=== PATIENT | female | born 2000 | race American Indian/Alaskan Native ===

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

== ENCOUNTER 2019-07-08 18:28 | Emergency (ER) | payer SELFPAY ==
[2019-07-08] MEDS ORDERED: ONDANSETRON 4 MG ODT TAB PO ONE (19:43)
--- NOTE | 2019-07-08 19:43 | Event Note ---
ED Screening Note ED Screening Note: upper abd pain n/v a couple days ago no diarrhea no fever +dysuria a week PMHx gastritis allergy: tramadol has a nexplanon This initial assessment/diagnostic orders/clinical plan/treatment(s) is/are subject to change based on patients health status, clinical progression and re- assessment by fellow clinical providers in the ED. Further treatment and workup at subsequent clinical providers discretion. Patient/guardian urged not to elope from the ED as their condition may be serious if not clinically assessed and managed. Initial orders include: labs, UA, urine preg
[2019-07-08] MEDS ORDERED: ONDANSETRON 4 MG ODT TAB ONE (19:45)
[2019-07-08 19:46] VITALS: BP 131/94
[2019-07-08 21:45] LABS: HCG Qualitative,Urine Negative (Negative)
[2019-07-08 21:49] LABS: Bilirubin,Urine NEG (Negative); Blood,Urine NEG (Negative); Color,Urine Amber (Yellow); Mucus,Urine 3+ /HPF
== END 2019-07-08 21:48 | disposition left against medical advice (07) ==
LOC: ED 18:28
DX: R10.9 Unspecified abdominal pain (principal); Z53.21 Procedure and treatment not carried out due to patient leaving prior to being seen by health care provider
CPT/HCPCS: 81001; 81025; 87086; Q0162

== ENCOUNTER 2019-09-08 23:19 | Emergency (ER) | payer SELFPAY ==
[2019-09-09 00:02] LABS: Basophils # (Auto) 0.1 K/mm3 (0.0-0.1); Basophils % (Auto) 0.4 % (0.0-1.8); Eosinophils % (Auto) 0.1 % (0.0-4.3); Hematocrit 32.6 % (30.3-42.9); Hemoglobin 10.6 gm/dl (10.1-14.3); Lymphocytes # (Auto) 2.2 K/mm3 (1.2-5.4); Mean Corpuscular HGB Conc 33 % (30-34); Monocytes # (Auto) 1.5 K/mm3 (0.0-0.8); Monocytes % (Auto) 8.3 % (0.0-7.3); Platelet Count 716 K/mm3 (140-440); Red Blood Count 4.68 M/mm3 (3.65-5.03)
[2019-09-09 00:07] LABS: Mean Corpuscular Volume 70 fl (79-97); Red Cell Distribution Width 23.4 % (13.2-15.2)
[2019-09-09 00:25] LABS: Alanine Aminotransferase 14 units/L (7-56); Albumin 5.3 g/dL (3.9-5); BUN/Creatinine Ratio 13; Blood Urea Nitrogen 14 mg/dL (7-17)
[2019-09-09 00:50] LABS: Calcium 10.6 mg/dL (8.4-10.2); Hemolysis Index 1
[2019-09-09] MEDS ORDERED: MORPHINE 4 MG/1 ML INJ IV ONE (00:52)
[2019-09-09] MEDS ORDERED: ONDANSETRON 4 MG/2 ML INJ IV ONE (00:52)
[2019-09-09] MEDS ORDERED: SODIUM CHLORIDE 0.9% 1000 ML 1,000 ML IV ONE (00:53)
[2019-09-09] MEDS ORDERED: POTASSIUM CHLORIDE ER 20 MEQ TAB PO ONE (01:58)
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
[2019-09-09 05:52] LABS: Bacteria,Urine 1+ /HPF (Negative); Bilirubin,Urine NEG (Negative); Blood,Urine NEG (Negative); Color,Urine Yellow (Yellow); Mucus,Urine 3+ /HPF
[2019-09-09] MEDS ORDERED: ACETAMINOPHEN 500 MG TAB PO ONE (06:04)
[2019-09-09 06:42] VITALS: BP 111/76
== END 2019-09-09 06:45 | disposition home or self-care (01) ==
LOC: ED 23:19
DX: O23.41 Unspecified infection of urinary tract in pregnancy, first trimester (principal); O26.891 Other specified pregnancy related conditions, first trimester; O99.511 Diseases of the respiratory system complicating pregnancy, first trimester; R10.9 Unspecified abdominal pain; J45.909 Unspecified asthma, uncomplicated; T14.90XA Injury, unspecified, initial encounter; Z79.899 Other long term (current) drug therapy; Z88.8 Allergy status to other drugs, medicaments and biological substances; Z90.49 Acquired absence of other specified parts of digestive tract; Z3A.01 Less than 8 weeks gestation of pregnancy; Y04.8XXA Assault by other bodily force, initial encounter; Y93.89 Activity, other specified; Y92.89 Other specified places as the place of occurrence of the external cause; Y99.8 Other external cause status
CPT/HCPCS: 36415; 76801; 76817; 80053; 81001; 84702; 84703; 85025; 87086; 96361; 96374; 96375; 99284; J2270; J2405; J7030

== ENCOUNTER 2019-09-09 21:17 | Emergency (ER) | payer SELFPAY ==
[2019-09-09] MEDS ORDERED: ACETAMINOPHEN 325 MG TAB PO ONE (22:18)
[2019-09-09 22:29] LABS: Amphetamine Screen,Urine PRESUMPTIVE NEGATIVE; Benzodiazepines Screen,Urine PRESUMPTIVE NEGATIVE; Cocaine Screen,Urine PRESUMPTIVE NEGATIVE; Methadone Screen,Urine PRESUMPTIVE NEGATIVE; Opiate Screen,Urine PRESUMPTIVE NEGATIVE
[2019-09-09] MEDS ORDERED: ONDANSETRON 4 MG ODT TAB PO ONE (22:41)
--- NOTE | 2019-09-09 22:44 | Emergency Department Report ---
ED Abdominal Pain HPI - General Chief Complaint: Abdominal Pain Stated Complaint: ABDOMINAL PAIN Time Seen by Provider: 09/09/19 21:59 Source: patient, EMS Mode of arrival: Ambulatory Limitations: No Limitations - History of Present Illness Initial Comments: 18-year-old female presents to the emergency room complaining of abdominal pain with nausea and vomiting. Patient was seen here and discharged this morning at 6:33 AM for the same complaint. It was noted the patient was she had ultrasound that showed a gestational sac approximately 6 weeks . She was diagnosed for a urinary tract infection and was treated with Keflex and Tylenol. Patient is currently not taking any vitamins. Patient has a past medical history of marijuana use with her last in 2018. Patient reports she does not have a primary care provider and has not selected a OB provider. MD Complaint: abdominal pain Location: diffuse Severity scale (0 -10): 10 Quality: aching Consistency: constant Improves With: nothing Worsens With: nothing Context: other (Want to abuse in ) Associated Symptoms: nausea, vomiting - Related Data Home Medications Medication Instructions Recorded Confirmed Last Taken Vit-Fe Fumar-FA [ 1 tab PO QDAY 12/23/17 12/23/17 Unknown Vitamin] Previous Rx's Medication Instructions Recorded Last Taken Type Ibuprofen [Motrin 600 MG tab] 600 mg PO Q8H PRN #30 tablet 12/23/17 Unknown Rx Multivitamin with Iron 1 each PO DAILY #30 tablet 12/23/17 Unknown Rx [Multivitamins with Iron] oxyCODONE /ACETAMINOPHEN [Percocet 1 tab PO Q6HR PRN #30 tablet 12/23/17 Unknown Rx 5/325] Ferrous Sulfate [Feosol 325 MG tab] 325 mg PO BID #60 tablet 12/26/17 Unknown Rx Acetaminophen [Tylenol] 500 mg PO Q6HR PRN #30 tablet 09/09/19 Unknown Rx cephALEXin [Keflex] 500 mg PO Q8HR #30 cap 09/09/19 Unknown Rx Allergies Allergy/AdvReac Type Severity Reaction Status Date / Time tramadol Allergy Hives Verified 10/19/17 00:47 ED Review of Systems ROS: Stated complaint: ABDOMINAL PAIN Other details as noted in HPI Comment: All other systems reviewed and negative ED Past Medical Hx - Past Medical History Hx Hypertension: No Hx Congestive Heart Failure: No Hx Diabetes: No Hx Deep Vein Thrombosis: No Hx Renal Disease: No Hx Sickle Cell Disease: No Hx Seizures: No Hx Asthma: Yes Hx COPD: No Hx HIV: No Additional medical history: H Pylori. gastritis - Surgical History Hx Cholecystectomy: Yes - Social History Smoking Status: Never Smoker Substance Use Type: None - Medications Home Medications: Home Medications Medication Instructions Recorded Confirmed Last Taken Type Ibuprofen [Motrin 600 MG tab] 600 mg PO Q8H PRN #30 tablet 12/23/17 Unknown Rx Multivitamin with Iron 1 each PO DAILY #30 tablet 12/23/17 Unknown Rx [Multivitamins with Iron] Vit-Fe Fumar-FA [ 1 tab PO QDAY 12/23/17 12/23/17 Unknown History Vitamin] oxyCODONE /ACETAMINOPHEN [Percocet 1 tab PO Q6HR PRN #30 tablet 12/23/17 Unknown Rx 5/325] Ferrous Sulfate [Feosol 325 MG tab] 325 mg PO BID #60 tablet 12/26/17 Unknown Rx Acetaminophen [Tylenol] 500 mg PO Q6HR PRN #30 tablet 09/09/19 Unknown Rx cephALEXin [Keflex] 500 mg PO Q8HR #30 cap 09/09/19 Unknown Rx ED Physical Exam - General Limitations: No Limitations General appearance: alert, in distress - Head Head exam: Present: atraumatic, normocephalic - Eye Eye exam: Present: normal appearance - ENT ENT exam: Present: mucous membranes moist - Neck Neck exam: Present: normal inspection - Respiratory Respiratory exam: Present: normal lung sounds bilaterally. Absent: respiratory distress - Cardiovascular Cardiovascular Exam: Present: regular rate, normal rhythm. Absent: systolic murmur, diastolic murmur, rubs, gallop - GI/Abdominal GI/Abdominal exam: Present: soft, tenderness. Absent: distended, guarding, rebound - Neurological Exam Neurological exam: Present: alert, oriented X3 - Psychiatric Psychiatric exam: Present: normal affect, normal mood - Skin Skin exam: Present: warm, dry, intact, normal color. Absent: rash ED Course Vital Signs 09/09/19 09/10/19 21:41 02:38 Temperature 99.5 F 98 F Pulse Rate 125 H 99 H Respiratory 18 20 Rate Blood Pressure 101/65 Blood Pressure 118/88 [Left] O2 Sat by Pulse 100 99 Oximetry Critical care attestation.: If time is entered above; I have spent that time in minutes in the direct care of this critically ill patient, excluding procedure time. ED Disposition Clinical Impression: Hyperemesis gravidarum, Cannabinoid hyperemesis syndrome Qualifiers: Weeks of gestation: less than 8 weeks Qualified Code(s): Z3A.01 - Less than 8 weeks gestation of Disposition: DC- TO HOME OR SELFCARE Is pt being admited?: No Does the pt Need Aspirin: No Condition: Stable Instructions: Hyperemesis Gravidarum (ED), Cannabis Abuse (ED), Abdominal Pain (ED) Additional Instructions: Stop smoking marijuana as this is what is causing your abdominal pain nausea and vomiting. Please complete your antibiotics and pain medication that was prescribed to you the day before. [facility] for care. Referrals: [facility] [Provider Group] - 3-5 Days PRIMARY CARE, [Primary Care Provider] - 3-5 Days
[2019-09-09 22:46] LABS: Cannabinoid Screen,Urine PRESUMPTIVE POSITIVE
[2019-09-09] MEDS ORDERED: SODIUM CHLORIDE 0.9% 1000 ML 1,000 ML IV ONE (22:46)
[2019-09-09] MEDS ORDERED: DICYCLOMINE 20 MG/2 ML INJ IM ONE (22:52)
[2019-09-10 02:39] VITALS: BP 118/88
== END 2019-09-10 02:38 | disposition home or self-care (01) ==
LOC: ED 21:17
DX: O21.0 Mild hyperemesis gravidarum (principal); O99.511 Diseases of the respiratory system complicating pregnancy, first trimester; O99.331 Smoking (tobacco) complicating pregnancy, first trimester; J45.909 Unspecified asthma, uncomplicated; Z88.8 Allergy status to other drugs, medicaments and biological substances; Z79.899 Other long term (current) drug therapy; Z90.49 Acquired absence of other specified parts of digestive tract; Z3A.01 Less than 8 weeks gestation of pregnancy
CPT/HCPCS: 80307; 96372; 99284; J0500; J7030; 96360; 96361; Q0162

== ENCOUNTER 2019-09-10 05:29 | Emergency (ER) | payer SELFPAY | END 2019-09-10 05:38 | disposition left against medical advice (07) | LOC: ED 05:29 | DX: O26.891 Other specified pregnancy related conditions, first trimester (principal); R10.9 Unspecified abdominal pain; Z3A.00 Weeks of gestation of pregnancy not specified; Z53.21 Procedure and treatment not carried out due to patient leaving prior to being seen by health care provider ==

== ENCOUNTER 2021-02-25 03:05 | Emergency (ER) | payer MEDICAID ==
[2021-02-25 03:21] VITALS: BP 108/65
== END 2021-02-25 06:12 | disposition left against medical advice (07) ==
LOC: ED 03:05
DX: R10.9 Unspecified abdominal pain (principal); Z53.21 Procedure and treatment not carried out due to patient leaving prior to being seen by health care provider